=== PATIENT | female | born 1980 | race Two or more races ===

== ENCOUNTER 2020-11-25 19:45 | Emergency (ER) | payer SELFPAY ==
[~2020-11-25] VITALS: Ht 172.7 cm; Wt 97.9 kg
[2020-11-25] MEDS ORDERED: LIDO:MAALOX 1:1 20 ML SINGLE DOSE. SWSW ONE (21:00)
[2020-11-25 21:01] VITALS: BP 137/80
--- NOTE | 2020-11-25 21:27 | ED.ADGEN ---
General Adult EDM: Chief Complaint: ABDOMINAL PAIN IN HPI: HPI: Patient is a 40 year old female, accompanied by her daughter, who presents emergency room with complaints of upper abdominal pain after eating several oranges and lots of spicy salsa today. Patient is currently , she is 4, para 1. Patient states she is currently 4 months , her due date is in April of this year. 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 De La O. She denies any nausea, vomiting, lower abdominal pain, dysuria, hematuria, irregular vaginal discharge, vaginal bleeding, back pain, fever, cough, chest pain, shortness of breath, body aches, or fatigue. Patient cur rently states that the pain has resolved. She denies any pain at this time. Review of Systems: Review of Systems: Complete ROS is negative unless otherwise noted in HPI. Current Medications: Current Medications Medications (Trade) Dose Ordered Sig/Galdino Start Time Stop Time Status Last Admin Dose Admin Multi-Ingredient Mouthwash/Gargle (Gi Cocktail) 20 ml 1X ONCE 11/25/20 21:00 11/25/20 21:01 UNV Physical Exam: PE: See Above Constitutional: Well developed, well nourished, no acute distress, non-toxic appearance. [] HENT: Normocephalic, atraumatic, bilateral external ears normal, nose normal. [] Eyes: PERRLA, EOMI, conjunctiva normal, no discharge. [] Neck: Normal range of motion, no stridor. [] Cardiovascular:Heart rate regular rhythm Lungs & Thorax: Respirations even and unlabored, no retractions, no respiratory distress Abdomen: soft, no tenderness, no rebound tenderness, no guarding, no palpable masses heart tones 160's Doppler by myself Skin: Warm, dry, no erythema, no rash. [] Extremities: No cyanosis, ROM intact, no edema. [] Neurologic: Alert and oriented X 3, normal motor, normal sensory, no focal deficits noted. [] Psychologic: Affect normal, judgement normal, mood normal. [] Current Patient Data: Labs: Laboratory Tests Test 11/25/20 20:30 POC Urine HCG, Qualitative Hcg positive (Negative) EKG: EKG: [] Heart Score: C/O Chest Pain: No Risk Scores: Score 0 - 3: 2.5% MACE over next 6 weeks - Discharge Home Score 4 - 6: 20.3% MACE over next 6 weeks - Admit for Clinical Observation Score 7 - 10: 72.7% MACE over next 6 weeks - Early Invasive Strategies Radiology/Procedures: Radiology/Procedures: [] Course & Med Decision Making: Course & Med Decision Making Pertinent Labs and Imaging studies reviewed. (See chart for details) [] Dragon Disclaimer: Dragon Disclaimer: This electronic medical record was generated, in whole or in part, using a voice recognition dictation system. Departure Departure Impression: Primary Impression: Heartburn during in second trimester Disposition: HOME / SELF CARE / HOMELESS Condition: STABLE Referrals: DEREK DE LAO MD Patient Instructions: Heartburn During , [id number] Additional Instructions: Recommend that you eat bland foods such as bananas, rice, applesauce, and dry toast, then advance your diet as tolerated.. Follow-up with Dr. De La O's office in the next 1-2 days. Return to the emergency room if your symptoms worsen or if fever develops. DESMOND HAZEL [employer] CABLE November 25, 2020 21:27
== END 2020-11-25 21:33 | disposition home or self-care (01) ==
LOC: ER 19:45
DX: O26.892 Other specified pregnancy related conditions, second trimester (principal); R12 Heartburn; R10.10 Upper abdominal pain, unspecified; Z3A.16 16 weeks gestation of pregnancy
CPT/HCPCS: 81025; 99284

== ENCOUNTER 2020-12-22 13:59 | Observation (INO) | payer SELFPAY ==
[2020-12-22] MEDS ORDERED: IV RINGERS,LACTATED 1000ML 1,000 ML IV SCH (15:00)
[2020-12-22 15:04] LABS: BILIRUBIN,URINE NEGATIVE (NEG); CLARITY,URINE CLEAR; COLOR,URINE YELLOW; NITRITE,URINE NEGATIVE (NEG); PROTEIN,URINE 30 mg/dL (NEG-TRACE); UROBILINOGEN,URINE 0.2 mg/dL (0.2 mg/dL)
[2020-12-22 15:29] LABS: RBC,URINE 20-40 /HPF (0-2)
[2020-12-22 15:30] LABS: BACTERIA,URINE FEW /HPF (0-FEW)
--- NOTE | 2020-12-22 18:11 | RAD ---
Exam performed: OB sonogram second trimester. HISTORY: Evaluation of growth. DATE OF SERVICE: 12/22/2020. COMPARISON: None available. Patient's prior OB ultrasound performed at an outside facility. TECHNIQUE: Transabdominal. FINDINGS: Single intrauterine fetus is seen in cephalic presentation. The maturity is as follows. BPD 4.7 cm, 20 weeks 2 days Head circumference 17.9 cm, 20 weeks 3 days Abdominal circumference 16.8 cm, 21 weeks 6 days Femur length 3.4 cm, 20 weeks 6 days Composite maturity 20 weeks 6 days with a sonographic EDC of 05/05/2021. Estimated weight is 409 g. heart rate 157 bpm. Placenta is anterior partial previa. Cervical length measures 3.7 cm. Incidental multiple nabothian cysts are seen in the cervix. IMPRESSION: Single live intrauterine fetus in cephalic presentation of maturity 20 weeks and 6 days with a sonogr aphic EDC of 05/05/2021. Partial placenta previa. This may be followed up on subsequent OB sonograms. Electronically signed by: Taina Ochoa MD (12/22/2020 6:09 PM) [facility]
== END 2020-12-22 17:55 | disposition home or self-care (01) ==
LOC: 3 SO LND 13:59
PROVIDERS: ADMIT Obstetrics & Gynecology; ATTEND Obstetrics & Gynecology
DX: O46.92 Antepartum hemorrhage, unspecified, second trimester (principal); O26.892 Other specified pregnancy related conditions, second trimester; N89.8 Other specified noninflammatory disorders of vagina; O99.282 Endocrine, nutritional and metabolic diseases complicating pregnancy, second trimester; E05.90 Thyrotoxicosis, unspecified without thyrotoxic crisis or storm; Z3A.20 20 weeks gestation of pregnancy; Z79.899 Other long term (current) drug therapy
CPT/HCPCS: 59025; 76805; 76817; 81001; 87086; G0378; G0379